=== PATIENT | female | born 1950 | race Caucasian/White ===

== ENCOUNTER 2018-10-04 14:43 | Outpatient (CLI) | payer MEDICARE ==
--- NOTE | 2018-10-04 15:49 | RAD ---
CHEST 2 VIEWS: HISTORY: Dyspnea on exertion. COMPARISON: 09/21/2005. FINDINGS: Moderate-sized hiatal hernia. Heart size is within normal limits. Minimal increased linear and inte rstitial markings bilaterally, evidence for some mild chronic change. No confluent pneumonia, overt edema, pleural effusion, or other acute process. IMPRESSION: Moderate-sized hiatal hernia. Atherosclerosis of the aorta. No evidence for other acute process. POS: [facility]
--- NOTE | 2018-10-04 16:10 | MMO ---
Bilateral MAMMO Bilat Screen [facility]. CLINICAL HISTORY: Patient is 68 years old and is seen for screening. The patient has the following family history of breast cancer: maternal grandmother, at age 55. The patient has no personal history of cancer. VIEWS: The views performed were: bilateral craniocaudal with tomosynthesis and bilateral mediolateral oblique with tomosynthesis. FILMS COMPARED: The present examination has been compared to prior imaging studies performed at [facility] on 04/01/2004, 04/14/2006 and 08/27/2009, and at [facility] on 04/07/1997 and 05/07/2000. MAMMOGRAM FINDINGS: There are scattered fibroglandular densities. There are no suspicious masses, suspicious calcifications, or new areas of architectural distortion. IMPRESSION: THERE IS NO MAMMOGRAPHIC EVIDENCE OF MALIGNANCY. A ROUTINE FOLLOW-UP MAMMOGRAM IN 1 YEAR IS RECOMMENDED. THE RESULTS OF THIS EXAM WERE SENT TO THE PATIENT. ACR BI-RADS Category 1 - Negative MAMMOGRAPHY NOTE: 1. A negative mammogram report should not delay a biopsy if a dominant of clinically suspicious mass is present. 2. Approximately 10% to 15% of breast cancers are not detected by mammography. 3. Adenosis and dense breasts may obscure an underlying neoplasm.
== END 2018-10-04 14:44 | disposition home or self-care (01) ==
LOC: BICMAMMO 14:43
PROVIDERS: ATTEND Family Medicine
DX: Z12.31 Encounter for screening mammogram for malignant neoplasm of breast (principal); R06.09 Other forms of dyspnea; K44.9 Diaphragmatic hernia without obstruction or gangrene; I70.0 Atherosclerosis of aorta; Z80.3 Family history of malignant neoplasm of breast
CPT/HCPCS: 71046; 77063; 77067

== ENCOUNTER 2019-04-29 11:31 | Emergency (ER) | payer MEDICARE ==
[2019-04-29] MEDS ORDERED: Fluorescein Opthalmic Strip ONE (12:03)
[2019-04-29] MEDS ORDERED: Proparacaine 0.5% Opth 15 ML BOT ONE (12:03)
== END 2019-04-29 12:30 | disposition home or self-care (01) ==
LOC: ERS 11:31
DX: S05.01XA Injury of conjunctiva and corneal abrasion without foreign body, right eye, initial encounter (principal); I50.9 Heart failure, unspecified; F17.210 Nicotine dependence, cigarettes, uncomplicated; Z79.899 Other long term (current) drug therapy; Z77.098 Contact with and (suspected) exposure to other hazardous, chiefly nonmedicinal, chemicals; X19.XXXA Contact with other heat and hot substances, initial encounter
CPT/HCPCS: 99283

== ENCOUNTER 2020-08-07 08:23 | Outpatient (CLI) | payer MEDICARE, OTHER | END 2020-08-07 08:24 | disposition home or self-care (01) | LOC: BICULT 08:23 | PROVIDERS: ATTEND Family Medicine | DX: R10.84 Generalized abdominal pain (principal); R93.2 Abnormal findings on diagnostic imaging of liver and biliary tract | CPT/HCPCS: 93975 ==

== ENCOUNTER 2020-12-02 10:10 | Emergency (ER) | payer MEDICARE, OTHER | END 2020-12-02 12:49 | disposition home or self-care (01) | LOC: ERS 10:10 | DX: S80.251A Superficial foreign body, right knee, initial encounter (principal); I50.9 Heart failure, unspecified; I42.9 Cardiomyopathy, unspecified; F17.210 Nicotine dependence, cigarettes, uncomplicated; Z79.899 Other long term (current) drug therapy; W45.8XXA Other foreign body or object entering through skin, initial encounter; W19.XXXA Unspecified fall, initial encounter | CPT/HCPCS: 99283 ==

== ENCOUNTER 2021-10-09 14:07 | Outpatient (CLI) | payer MEDICARE, OTHER | END 2021-10-09 14:08 | disposition home or self-care (01) | LOC: BICMAMMO 14:07 | PROVIDERS: ATTEND Family Medicine | DX: Z12.31 Encounter for screening mammogram for malignant neoplasm of breast (principal); Z80.3 Family history of malignant neoplasm of breast | CPT/HCPCS: 77063; 77067 ==

== ENCOUNTER 2024-07-25 08:43 | Outpatient (CLI) | payer MEDICARE ==
[2024-07-25] MEDS ORDERED: Iopamidol 370 76% 100 ML VIAL ONE (15:01)
== END 2024-07-25 08:44 | disposition home or self-care (01) ==
LOC: CT 08:43
PROVIDERS: ATTEND Family Medicine
DX: R10.12 Left upper quadrant pain (principal); K44.9 Diaphragmatic hernia without obstruction or gangrene; I82.890 Acute embolism and thrombosis of other specified veins
CPT/HCPCS: 74178